=== PATIENT | female | born 1945 | race Caucasian/White ===

== ENCOUNTER → 2021-11-17 10:36 | Outpatient (REF) | payer MEDICARE, BC, SELFPAY ==
[2021-11-17 11:09] LABS: Medical Necessity Pt Refused NOT ORDERED
[2021-11-17 12:02] LABS: % Basophils 0.9 % (0-2); % Eosinophils 6.9 % (0-6); % Immature Granulocytes 0.2 % (0-0.5); % Lymphocytes 25.6 % (20.5-51.1); % Monocytes 8.7 % (1.7-9.3); % Neutrophils 57.7 % (42.2-75.2); Absolute Basophils 0.1 10^3/uL (0-0.2); Absolute Eosinophils 0.4 10^3/uL (0-0.7); Absolute Lymphocytes 1.5 10^3/uL (1.2-3.4); Absolute Monocytes 0.5 10^3/uL (0.1-0.6); Absolute Neutrophils 3.3 10^3/uL (1.4-6.5); Hematocrit 37.7 % (37.0-47.0); Hemoglobin 12.1 g/dL (12.0-16.0); Mean Corp Hgb Conc. 32.1 g/dL (33.0-37.0); Mean Corpuscular Hgb 30.6 pg (27.0-31.0); Mean Corpuscular Volume 95.2 fL (81.0-99.0); Mean Platelet Volume 11.5 fL (7.4-10.4); Nucleated Red Blood Cells % 0 %; Platelet Count 159 10^3/uL (130-400); Red Blood Cell Count 3.96 10^6/uL (4.20-5.40); Red Cell Dist. Width 14.6 % (11.5-14.5); White Blood Cell Count 5.7 10^3/uL (4.8-10.8)
[2021-11-17 12:24] LABS: Urine Albumin Negative (Neg - Trace); Urine Bilirubin Negative (Negative); Urine Character Clear (Clear); Urine Color Yellow; Urine Glucose Negative (Negative); Urine Ketone Negative (Negative); Urine Leukocyte Negative (Negative); Urine Nitrite Negative (Negative); Urine Occult Blood Negative (Negative); Urine Specific Gravity 1.015 (<1.030); Urine Urobilinogen Negative (Neg - 1+)
[2021-11-17 12:25] LABS: INR 2.03; PT 22.7 Sec (11.4-14.6)
[2021-11-17 12:52] LABS: ALT (SGPT) 24 U/L (0-35); AST (SGOT) 32 U/L (14-36); Albumin 4.2 g/dl (3.5-5.0); Alkaline Phosphatase 89 U/L (38-126); Blood Urea Nitrogen 13 mg/dl (7-17); Calcium 9.9 mg/dl (8.4-10.2); Carbon Dioxide 32 mmol/L (22-30); Chloride 105 mmol/L (98-107); Glomerular Filtration Rate > 60.0; Glucose 92 mg/dl (65-99); HDL Cholesterol 72 mg/dl; LDL Cholesterol, Calculated 108 mg/dl; Sodium 139 mmol/L (135-145); Total Bilirubin 0.7 mg/dl (0.2-1.3); Total Cholesterol 199 mg/dl (50-199); Triglyceride 95 mg/dl (10-149); Very Low Density Lipoprotein 19 mg/dl (0-30)
== END ==
LOC: REG 10:36
PROVIDERS: ATTENDING PHYSICIAN Family Medicine
DX: D50.9 Iron deficiency anemia, unspecified (principal); I11.9 Hypertensive heart disease without heart failure; E78.2 Mixed hyperlipidemia; E11.22 Type 2 diabetes mellitus with diabetic chronic kidney disease; I13.10 Hypertensive heart and chronic kidney disease without heart failure, with stage 1 through stage 4 chronic kidney disease, or unspecified chronic kidney disease; E11.9 Type 2 diabetes mellitus without complications; E03.9 Hypothyroidism, unspecified; N40.1 Benign prostatic hyperplasia with lower urinary tract symptoms; Z79.01 Long term (current) use of anticoagulants; E55.9 Vitamin D deficiency, unspecified; N30.30 Trigonitis without hematuria; E79.0 Hyperuricemia without signs of inflammatory arthritis and tophaceous disease; M36.8 Systemic disorders of connective tissue in other diseases classified elsewhere
CPT/HCPCS: 80053; 80061; 81003; 85025; 85610

== ENCOUNTER → 2023-03-19 10:42 | Outpatient (REF) | payer MEDICARE, BC, SELFPAY ==
[2023-03-19 11:32] LABS: INR 2.51; PT 26.9 Sec (11.4-14.6)
== END ==
LOC: REG 10:42
PROVIDERS: ATTENDING PHYSICIAN Family Medicine
DX: Z79.01 Long term (current) use of anticoagulants (principal)
CPT/HCPCS: 36415; 85610

== ENCOUNTER → 2023-04-17 10:19 | Outpatient (REF) | payer MEDICARE, BC, SELFPAY ==
[2023-04-17 11:40] LABS: INR 2.71; PT 28.7 Sec (11.4-14.6)
== END ==
LOC: REG 10:19
PROVIDERS: ATTENDING PHYSICIAN Family Medicine
DX: Z79.01 Long term (current) use of anticoagulants (principal)
CPT/HCPCS: 36415; 85610

== ENCOUNTER → 2023-05-17 11:04 | Outpatient (REF) | payer MEDICARE, BC, SELFPAY ==
[2023-05-17 12:00] LABS: INR 3.12; PT 32.6 Sec (11.4-14.6)
== END ==
LOC: REG 11:04
PROVIDERS: ATTENDING PHYSICIAN Family Medicine
DX: Z79.01 Long term (current) use of anticoagulants (principal)
CPT/HCPCS: 36415; 85610

== ENCOUNTER → 2023-06-14 10:35 | Outpatient (REF) | payer MEDICARE, BC, SELFPAY ==
[2023-06-14 12:20] LABS: INR 4.18; PT 41.1 Sec (11.4-14.6)
== END ==
LOC: REG 10:35
PROVIDERS: ATTENDING PHYSICIAN Family Medicine
DX: Z79.01 Long term (current) use of anticoagulants (principal)
CPT/HCPCS: 36415; 85610

== ENCOUNTER → 2023-06-25 10:15 | Outpatient (REF) | payer MEDICARE, BC, SELFPAY ==
[2023-06-25 11:45] LABS: INR 2.52; PT 27.1 Sec (11.4-14.6)
== END ==
LOC: REG 10:15
PROVIDERS: ATTENDING PHYSICIAN Family Medicine
DX: Z79.01 Long term (current) use of anticoagulants (principal)
CPT/HCPCS: 36415; 85610

== ENCOUNTER → 2023-08-13 12:25 | Outpatient (REF) | payer MEDICARE, BC, SELFPAY ==
[2023-08-13 13:53] LABS: INR 2.62
== END ==
LOC: REG 12:25
PROVIDERS: ATTENDING PHYSICIAN Family Medicine
DX: Z79.01 Long term (current) use of anticoagulants (principal)
CPT/HCPCS: 36415; 85610

== ENCOUNTER → 2023-09-28 10:03 | Outpatient (REF) | payer MEDICARE, BC, SELFPAY ==
[2023-09-28 11:23] LABS: INR 1.36; PT 16.6 Sec (11.4-14.6)
== END ==
LOC: REG 10:03
PROVIDERS: ATTENDING PHYSICIAN Family Medicine
DX: Z79.01 Long term (current) use of anticoagulants (principal)
CPT/HCPCS: 36415; 85610

== ENCOUNTER → 2023-10-18 10:05 | Outpatient (REF) | payer MEDICARE, BC, SELFPAY ==
[2023-10-18 11:12] LABS: INR 2.21; PT 24.8 Sec (11.4-14.6)
== END ==
LOC: REG 10:05
PROVIDERS: ATTENDING PHYSICIAN Family Medicine
DX: Z79.01 Long term (current) use of anticoagulants (principal)
CPT/HCPCS: 36415; 85610

== ENCOUNTER → 2023-11-14 10:24 | Outpatient (REF) | payer MEDICARE, BC, SELFPAY ==
[2023-11-14 11:09] LABS: INR 2.23; PT 24.9 Sec (11.4-14.6)
== END ==
LOC: REG 10:24
PROVIDERS: ATTENDING PHYSICIAN Family Medicine
DX: Z79.01 Long term (current) use of anticoagulants (principal)
CPT/HCPCS: 36415; 85610

== ENCOUNTER → 2023-12-19 10:41 | Outpatient (REF) | payer MEDICARE, BC, SELFPAY ==
[2023-12-19 12:32] LABS: INR 1.91; PT 22.4 Sec (11.4-14.6)
== END ==
LOC: REG 10:41
PROVIDERS: ATTENDING PHYSICIAN Family Medicine
DX: Z79.01 Long term (current) use of anticoagulants (principal)
CPT/HCPCS: 36415; 85610

== ENCOUNTER → 2024-01-16 10:22 | Outpatient (REF) | payer MEDICARE, BC, SELFPAY ==
[2024-01-16 11:40] LABS: INR 1.81; PT 21.5 Sec (11.4-14.6)
== END ==
LOC: REG 10:22
PROVIDERS: ATTENDING PHYSICIAN Family Medicine
DX: Z79.01 Long term (current) use of anticoagulants (principal)
CPT/HCPCS: 36415; 85610

== ENCOUNTER → 2024-02-18 10:23 | Outpatient (REF) | payer MEDICARE, BC, SELFPAY ==
[2024-02-18 11:19] LABS: INR 1.96; PT 22.5 Sec (11.4-14.6)
== END ==
LOC: REG 10:23
PROVIDERS: ATTENDING PHYSICIAN Family Medicine
DX: Z79.01 Long term (current) use of anticoagulants (principal)
CPT/HCPCS: 36415; 85610

== ENCOUNTER → 2024-03-17 10:23 | Outpatient (REF) | payer MEDICARE, BC, SELFPAY ==
[2024-03-17 11:32] LABS: INR 2.28; PT 25.2 Sec (11.4-14.6)
== END ==
LOC: REG 10:23
PROVIDERS: ATTENDING PHYSICIAN Family Medicine
DX: Z79.01 Long term (current) use of anticoagulants (principal)
CPT/HCPCS: 36415; 85610

== ENCOUNTER → 2024-04-15 10:40 | Outpatient (REF) | payer MEDICARE, BC, SELFPAY ==
[2024-04-15 11:28] LABS: INR 2.62
== END ==
LOC: REG 10:40
PROVIDERS: ATTENDING PHYSICIAN Family Medicine
DX: Z79.01 Long term (current) use of anticoagulants (principal)
CPT/HCPCS: 36415; 85610

== ENCOUNTER 2024-04-26 09:40 | Emergency (ER) | payer MEDICARE, BC, SELFPAY ==
[2024-04-26 09:48] VITALS: BP 174/80
--- NOTE | 2024-04-26 10:43 | ED.GENMED ---
History of Present Illness
General
Chief Complaint: Eye Problems
Time Seen by Provider: 04/26/24 10:43
History of Present Illness
History of Present Illness:
TIME OF INITIAL ENCOUNTER: 10:45 AM
HPI: Patient presents with right eye redness. This is associated with some pain in the superior orbital region of the right eye. She denies any purulence/crusting. She has a sensation of foreign body in the right eye. There has been no injury.
She has no fevers. She tells me that her vision is not affected.
EXAM:
GENERAL: Well appearing in mild distress
HEENT: Marked conjunctival injection to the right eye, no foreign body, no fluorescein uptake
NEUROLOGIC: Excellent strength all extremities, no obvious coordination deficits
PSYCHIATRIC: Appropriate mental status, normal insight and judgement
EXTREMITIES: Nontender, no edema, moves all extremities equally
SKIN: No rash, no lesions
NUMBER AND COMPLEXITY OF PROBLEMS ADDRESSED AT THE ENCOUNTER
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
� Acute Exacerbation and/or Progression of Chronic Illness: This is an acute problem
� Differential Diagnosis includes: Conjunctivitis, iritis, AACG
AMOUNT AND/OR COMPLEXITY OF DATA TO BE REVIEWED AND ANALYZED
� I performed an independent evaluation of and my interpretation is:
EKG:
CT:
X-rays:
Laboratory Studies:
Other:
� Review of other/old records: The patient had a TIA in 2019
� Clinical information was obtained by an independent historian:
� Prescriptions/Medications Considered but not given:
� Further testing considered but not performed:
RISK OF COMPLICATIONS AND/OR MORBIDITY OR MORTALITY OF PATIENT MANAGEMENT
� Social determinants of health affecting care: Lives at home
� Discussion with other providers:
� Escalation of care including admission/observation vs risk of discharge considered: Suspect more of a conjunctivitis that could be bacterial. Will place on antibiotics. No fluorescein uptake. Pupils are equal and not
suggestive of AACG. I did also irrigate the right eye and flipped the upper lid up.
ANY OTHER UPDATES:
Past History
Past History
ED Past Medical History: Hypercholesterolemia and Other (Pulmonary emboli)
ED Past Surgical History: Cardiac (Previous A. fib Ablation, atrial tachycardia,) and Other (Eye surgery/filter, appendectomy, previous ureteral surgery)
Social History
Tobacco: Non-smoker
Alcohol: Occasional
Drug: None
Personal:
Living: alone
Employment: Retired
Phy Exam
Physical Exam
Physical Exam:
See HPI
Course
Orders/Labs/Results
Orders:
Orders
04/26/24 10:46
Tetracaine HCl [Tetracaine 0.5% Ophthalmic Solution] 1 drop .ROUTE .[facility]
04/26/24 13:00
Ofloxacin [Ocuflox] See Dose Instructions OPHTH QID
Vital Signs
Initial and Last Documented VS:
Initial Vital Signs
Temp Pulse Resp BP Pulse Ox
36.6 C 77 16 174/80 98
04/26/24 09:48 04/26/24 09:48 04/26/24 09:48 04/26/24 09:48 04/26/24 09:48
Last Documented Vital Signs
Temp Pulse Resp BP Pulse Ox
36.6 C 77 16 174/80 98
04/26/24 09:48 04/26/24 09:48 04/26/24 09:48 04/26/24 09:48 04/26/24 09:48
*Critical Care Note
Total Time (30-74mins, 75-104mins- exclusive of procedures): Not Applicable
ED Attending Note
-
Portions of this chart may have been created with voice recognition software.� Occasional wrong word or��sound alike� substitutions may have occurred due to the inherent limitations of voice recognition software.
Discharge Plan
Departure
Patient Disposition: Home (Routine Discharge)
Date of Disposition: 04/26/24
Time of Disposition: 10:54
Patient with high blood pressure during this ER visit?: Yes
Discharge Problem:
Conjunctivitis
Instructions: Conjunctivitis (Pinkeye) (DC), BLOOD PRESSURE
Prescriptions:
No Action
rosuvastatin [Crestor] 40 MG tablet
40 mg PO HS
warfarin [Jantoven] 5 MG tablet
5 mg PO .ONE NIGHT
Patient Comments:
PATIENT TAKES 5MG ONE NIGHT THEN 2.5MG FOR TWO NIGHTS THEN 5MG FOR ONE NIGHT THEN 2.5MG FOR TWO NIGHTS
warfarin [Jantoven] 2.5 MG tablet
2.5 mg PO .TWO NIGHTS
Patient Comments:
PATIENT TAKES 5MG ONE NIGHT THEN 2.5MG FOR TWO NIGHTS THEN 5MG FOR ONE NIGHT THEN 2.5MG FOR TWO NIGHTS
acetaminophen [Tylenol Extra Strength] 500 MG tablet
500 mg PO DAILYPRN PRN (Reason: MILD PAIN)
biotin 1 MG capsule
1 mg PO DAILY
Referrals:
Bridget Covarrubias MD [Active] - Follow up in 2-3 days
Activity Restrictions/Additional Instructions:
I see no sign of foreign body or corneal abrasion to the right eye. I am placing you on antibiotics. You can use two ofloxacin drops to the right eye 4 times per day. Your visual acuity to your affected eye was 20/50. I have given you the
contact information for local forming process worker to follow-up with, Dr. Covarrubias.
Interventions
Interventions:
*Risk Screen - Suicide Last Done: 04/26/24 09:48
*General Assessment Last Done: 04/26/24 10:53
*Neglect/Abuse Screening Last Done: 04/26/24 09:48
*ED- Fall Risk Assessment Last Done: 04/26/24 10:53
*ED COVID-19 Vaccine History Last Done: 04/26/24 10:53
Discharge Date and Time
Print Language: BULGARIAN
[2024-04-26 10:52] VITALS: BMI 22.7
[2024-04-26] MEDS: OCUFLOX 2 DROP OPHTH (11:07)
== END 2024-04-26 11:12 | disposition home or self-care (01) ==
LOC: EMR 09:40
PROVIDERS: EMERGENCY PHYSICIAN Emergency Medicine; FAMILY PHYSICIAN Family Medicine
DX: H10.9 Unspecified conjunctivitis (principal); E78.00 Pure hypercholesterolemia, unspecified; I48.91 Unspecified atrial fibrillation; Z86.711 Personal history of pulmonary embolism; Z90.49 Acquired absence of other specified parts of digestive tract
CPT/HCPCS: 99282

== ENCOUNTER → 2024-05-13 10:32 | Outpatient (REF) | payer MEDICARE, BC, SELFPAY ==
[2024-05-13 11:33] LABS: % Eosinophils 7.5 % (0-6); % Immature Granulocytes 0.2 % (0-0.5); % Lymphocytes 24.7 % (20.5-51.1); % Monocytes 7.7 % (1.7-9.3); % Neutrophils 58.9 % (42.2-75.2); Absolute Basophils 0.1 10^3/uL (0-0.2); Absolute Eosinophils 0.4 10^3/uL (0-0.7); Absolute Lymphocytes 1.4 10^3/uL (1.2-3.4); Absolute Monocytes 0.5 10^3/uL (0.1-0.6); Absolute Neutrophils 3.4 10^3/uL (1.4-6.5); Hematocrit 37.9 % (37.0-47.0); Hemoglobin 12.5 g/dL (12.0-16.0); Mean Corpuscular Hgb 30.4 pg (27.0-31.0); Mean Corpuscular Volume 92.2 fL (81.0-99.0); Mean Platelet Volume 11.3 fL (7.4-10.4); Nucleated Red Blood Cells % 0 %; Platelet Count 179 10^3/uL (130-400); Red Blood Cell Count 4.11 10^6/uL (4.20-5.40); Red Cell Dist. Width 13.9 % (11.5-14.5); White Blood Cell Count 5.8 10^3/uL (4.8-10.8)
[2024-05-13 11:53] LABS: INR 2.77; PT 29.2 Sec (11.4-14.6)
[2024-05-13 11:58] LABS: ALT (SGPT) 18 U/L (0-35); AST (SGOT) 28 U/L (14-36); Albumin 4.6 g/dl (3.5-5.0); Alkaline Phosphatase 92 U/L (38-126); Blood Urea Nitrogen 17 mg/dl (7-17); Carbon Dioxide 28 mmol/L (22-30); Chloride 105 mmol/L (98-107); Glucose 94 mg/dl (70-99); HDL Cholesterol 69 mg/dl; LDL Cholesterol, Calculated 93 mg/dl; Potassium 4.5 mmol/L (3.5-5.1); Sodium 141 mmol/L (135-145); Total Bilirubin 0.7 mg/dl (0.2-1.3); Total Cholesterol 183 mg/dl (50-199); Total Protein 7.1 g/dl (6.3-8.2); Triglyceride 105 mg/dl (10-149); Very Low Density Lipoprotein 21 mg/dl (0-30); eGFR > 60.00
[2024-05-13 12:04] LABS: Urine Albumin Negative (Neg - Trace); Urine Bilirubin Negative (Negative); Urine Character Clear (Clear); Urine Color Yellow; Urine Glucose Negative (Negative); Urine Ketone Negative (Negative); Urine Leukocyte Negative (Negative); Urine Nitrite Negative (Negative); Urine Occult Blood 4+ (Negative); Urine Specific Gravity 1.015 (<1.030); Urine Urobilinogen Negative (Neg - 1+)
[2024-05-13 12:14] LABS: Vitamin D, 25-OH*** 85.5 ng/mL (30-80)
[2024-05-13 12:47] LABS: Urine Urothelial Cell 0-2 /LPF (FEW)
[2024-05-13 12:49] LABS: Urine Bacteria Few (Negative); Urine Red Blood Cell 16-20 /HPF (0-2)
== END ==
LOC: REG 10:32
PROVIDERS: ATTENDING PHYSICIAN Family Medicine
DX: Z79.01 Long term (current) use of anticoagulants (principal); D50.9 Iron deficiency anemia, unspecified; E78.2 Mixed hyperlipidemia; E55.9 Vitamin D deficiency, unspecified; N30.30 Trigonitis without hematuria
CPT/HCPCS: 36415; 80053; 80061; 81003; 81015; 82306; 85025; 85610

== ENCOUNTER → 2024-06-16 10:42 | Outpatient (REF) | payer MEDICARE, BC, SELFPAY ==
[2024-06-16 11:32] LABS: INR 1.99; PT 22.8 Sec (11.4-14.6)
== END ==
LOC: REG 10:42
PROVIDERS: ATTENDING PHYSICIAN Family Medicine
DX: Z79.01 Long term (current) use of anticoagulants (principal)
CPT/HCPCS: 36415; 85610

== ENCOUNTER → 2024-07-14 10:22 | Outpatient (REF) | payer MEDICARE, BC, SELFPAY ==
[2024-07-14 12:19] LABS: INR 1.86; PT 21.6 Sec (11.4-14.6)
== END ==
LOC: REG 10:22
PROVIDERS: ATTENDING PHYSICIAN Family Medicine
DX: Z79.01 Long term (current) use of anticoagulants (principal)
CPT/HCPCS: 36415; 85610

== ENCOUNTER → 2024-08-26 10:25 | Outpatient (REF) | payer MEDICARE, BC, SELFPAY ==
[2024-08-26 11:14] LABS: INR 3.07; PT 31.6 Sec (11.4-14.6)
== END ==
LOC: REG 10:25
PROVIDERS: ATTENDING PHYSICIAN Family Medicine
DX: Z79.01 Long term (current) use of anticoagulants (principal)
CPT/HCPCS: 36415; 85610

== ENCOUNTER → 2024-09-23 10:15 | Outpatient (REF) | payer MEDICARE, BC, SELFPAY ==
[2024-09-23 12:06] LABS: INR 2.60; PT 27.8 Sec (11.4-14.6)
== END ==
LOC: REG 10:15
PROVIDERS: ATTENDING PHYSICIAN Family Medicine
DX: Z79.01 Long term (current) use of anticoagulants (principal)
CPT/HCPCS: 36415; 85610

== ENCOUNTER → 2024-10-16 10:48 | Outpatient (REF) | payer MEDICARE, BC, SELFPAY ==
[2024-10-16 12:03] LABS: INR 3.02; PT 31.7 Sec (11.4-14.6)
== END ==
LOC: REG 10:48
PROVIDERS: ATTENDING PHYSICIAN Family Medicine
DX: Z79.01 Long term (current) use of anticoagulants (principal)
CPT/HCPCS: 36415; 85610

== ENCOUNTER → 2024-11-14 10:29 | Outpatient (REF) | payer MEDICARE, BC, SELFPAY ==
[2024-11-14 11:32] LABS: INR 2.13; PT 23.9 Sec (11.4-14.6)
== END ==
LOC: REG 10:29
PROVIDERS: ATTENDING PHYSICIAN Family Medicine
DX: Z79.01 Long term (current) use of anticoagulants (principal)
CPT/HCPCS: 36415; 85610

== ENCOUNTER → 2024-12-17 10:37 | Outpatient (REF) | payer MEDICARE, BC, SELFPAY ==
[2024-12-17 11:54] LABS: INR 2.33; PT 26.0 Sec (11.4-14.6)
== END ==
LOC: REG 10:37
PROVIDERS: ATTENDING PHYSICIAN Family Medicine
DX: Z79.01 Long term (current) use of anticoagulants (principal)
CPT/HCPCS: 36415; 85610

== ENCOUNTER → 2025-01-21 10:17 | Outpatient (REF) | payer MEDICARE, BC, SELFPAY ==
[2025-01-21 11:08] LABS: INR 2.03; PT 22.6 Sec (11.4-14.6)
== END ==
LOC: REG 10:17
PROVIDERS: ATTENDING PHYSICIAN Family Medicine
DX: Z79.01 Long term (current) use of anticoagulants (principal)
CPT/HCPCS: 36415; 85610